=== PATIENT | male | born 1980 | race Caucasian/White ===

== ENCOUNTER → 2017-09-02 | Outpatient (CLI) | payer OTHER ==
[~2017-09-02] MED LIST: CEPHALEXIN500 M1 PO; NORCO 325 MG-51 TAB PO; PROVENTIL0.09 MG/A1 IH
== END ==
LOC: COL.RAD 08:00
DX: M54.5 Low back pain (principal); M53.3 Sacrococcygeal disorders, not elsewhere classified
CPT/HCPCS: G0260; J3301

== ENCOUNTER 2021-04-10 10:23 | Outpatient (CLI) | payer OTHER ==
[2021-04-10] VITALS (7 sets, daily range): BP systolic 114–134; BP diastolic 79–105; PULSE 65–81; TEMP 98.9
[2021-04-10] MEDS ORDERED: ALEVE 220MG220 MG PO (11:58)
== END 2021-04-10 13:05 | disposition home or self-care (01) ==
LOC: EUO 10:23
DX: U07.1 COVID-19 (principal); J45.909 Unspecified asthma, uncomplicated
CPT/HCPCS: M0243; Q0244